=== PATIENT | female | born 2005 | race Caucasian/White ===

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

== ENCOUNTER 2024-04-12 08:25 | Day surgery (SDC) | payer BC ==
[2024-04-09 10:45] VITALS: BMI 24.3
--- NOTE | 2024-04-11 19:46 | HP ---
HISTORY AND PHYSICAL CHIEF COMPLAINT: Chronic tonsillitis. HISTORY OF PRESENT ILLNESS: The patient is a 18-year-old female who was recently seen in my office with complaints of having recurrent episodes of streptococcal tonsillitis despite treatment with various types of oral antibiotics. The patient has an allergy to penicillin. At the time that she was seen in my office, clinical examination of the oropharynx reveals that she had 4+ cryptic tonsils filled with white cheesy debris. It was recommended that she undergo a tonsillectomy under general anesthesia. PAST MEDICAL HISTORY: Reveals she has allergies to penicillin, amoxicillin, etc. Her only current medication is control pills. She has not had any previous surgeries. REVIEW OF SYSTEMS: Completely unremarkable. PHYSICAL EXAMINATION: GENERAL: This patient is a pleasant 18-year-old female who was alert and cooperative. HEENT: The patient is normocephalic. Tympanic membranes are normal. Middle ear space is free of any fluid or infection. Pupils are equal, round, reactive to light and accommodation. Extraocular movements within normal limits. Intranasal examination reveals moderate septal deviation with compensatory hypertrophy of inferior turbinates and a moderate amount of mucus on the mucous membranes and draining down the posterior pharynx. Examination of oropharynx reveals 4+ cryptic tonsils filled with white cheesy debris. Remainder of the head and neck exam is unremarkable. CHEST: Both lung allen are clear. CARDIOVASCULAR: The patient has a regular sinus rhythm. S1, S2 present without any murmurs. ABDOMEN: There is no evidence any masses, megaly or tenderness. The abdomen is soft. SKIN: Unremarkable. MUSCULOSKELETAL: Within normal limits. NEUROLOGIC: Within normal limits. The remainder of the physical exam is essentially unremarkable. IMPRESSION: Chronic tonsillitis. PLAN: The patient is scheduled undergo a tonsillectomy under general anesthesia in a.m. Attention, RNs in the pre-surgical area: I have ordered for the patient to receive 1 g of Rocephin IV to be given once an intravenous line has been established. If the pharmacy department has sent a different type of antibiotic to the pre-surgical area for this patient, please return that medication and cancel the order. Make sure that the patient's account is credited appropriately. Also, if necessary, make the pharmacy department aware that the Rocephin is a 3rd generation cephalosporin and it has been found to be safe to use in patients who have penicillin allergies. I have also ordered for this patient to receive 1000 mg of Ofirmev IV to be given once an intravenous line has been established. This patient will be staying in the hospital until 4:15 p.m. Prior to her discharge, I would like for the patient to have 4 mg of Zofran IV and also 0.5 mg of Dilaudid IV. I would like for the patient to receive both these medications even if she is not having any problems with nausea or with pain. This will ensure that she is comfortable once she arrives at home. If you wish to give the patient her oral pain medication while she is in the postop area, the [place] 7.5/325 mg, then this is okay if it is possible to give her the [place] tablets with a little bit of applesauce or ice cream that would reduce the chances of her becoming nauseated. KRISTINA / MARLON: [id number] /
[~2024-04-12 08:25] MED LIST: MIDAZOLAM 2 MG/2 ML VIAL IV PRN; Pre Op ABX Message 1 EACH MISC MISCELLANE ONE
[2024-04-12] MEDS: IV FLUID CONTINUATION 1,000 ML IV ONE ×2 (08:59→12:08)
[2024-04-12] MEDS: LIDOCAINE 1% (10MG/ML) FOR IV START INTRADERMA STA (09:02)
[2024-04-12] MEDS: LACTATED RINGERS 1,000 ML IV SCH (09:03)
[2024-04-12] MEDS: ACETAMINOPHEN IV (For NPO) 1,000 MG in EMPTY BAG 1 BAG IVPB ONE (09:21)
[2024-04-12] MEDS: ONDANSETRON 4 MG/2 ML VIAL IVP ONE (09:22)
[2024-04-12] MEDS: DEXAMETHASONE SOD PHOSPHATE 4 MG/ML 1 ML VIAL IVP ONE (09:22)
[2024-04-12] MEDS ORDERED: PROPOFOL 10 MG/ML 20 ML VIAL IV ONE (09:58)
[2024-04-12] MEDS ORDERED: fentaNYL (PF) 50 MCG/ML 2 ML AMP ONE (09:58)
[2024-04-12] MEDS ORDERED: SUCCINYLCHOLINE CHLORIDE 200 MG/10 ML VIAL IV ONE (09:58)
[2024-04-12] MEDS ORDERED: MIDAZOLAM 2 MG/2 ML VIAL ONE (09:58)
[2024-04-12] MEDS ORDERED: LIDOCAINE 1% INJ 10MG/ML (20 ML MDV) ONE (09:58)
[2024-04-12] MEDS: BUPIVACAINE (PF) 0.5% 30 ML VIAL SQ ONE ×4 (10:26→10:53)
[2024-04-12] MEDS ORDERED: LACTATED RINGERS 1,000 ML IV SCH (11:00)
[2024-04-12] MEDS: fentaNYL (PF) 50 MCG/ML 2 ML AMP IV PRN (11:39)
[2024-04-12 11:49] VITALS: RESP 16; TEMP 97.8
[2024-04-12] MEDS: HYDROmorphone 0.5 MG/0.5 ML SYRINGE IVP ONE (12:07)
[2024-04-12] MEDS: ONDANSETRON 4 MG/2 ML VIAL IVP SCH (13:39)
[2024-04-12] MEDS: HYDROcodone/APAP 7.5-325MG 1 EACH TAB PO PRN (13:51)
[2024-04-12 14:26] VITALS: BP 128/74; PULSE 77
--- NOTE | 2024-04-16 00:23 | OP ---
OPERATIVE REPORT DATE OF SERVICE : 04/12/2024 PREOPERATIVE DIAGNOSIS: Chronic tonsillitis with tonsillar hypertrophy. POSTOPERATIVE DIAGNOSIS: Chronic tonsillitis with tonsillar hypertrophy. ANESTHESIA: General. OPERATIVE PROCEDURE: Tonsillectomy. COMPLICATIONS: None. ESTIMATED BLOOD LOSS: Less than 50 mL. DESCRIPTION OF PROCEDURE: The patient was placed on the Operating Table in the supine position, after uneventful induction and endotracheal intubation, satisfactory general anesthesia was obtained. Next, the #3 Alvin-Ravindra mouth gag was introduced into the oropharynx, expanded and suspended from a Hawley Stand. Following this, both peritonsillar areas were injected with the tonsillar forceps and pulled medially. The sickle knife was used to make an incision 4 mm lateral to the anterior pillar, beginning at the superior pole and working down to the inferior pole with a similar incision being carried out parallel to the posterior pillar. The angle scissors and the serrated Loreta dissector were used to dissect the tonsil away from the tonsillar fossa. The tonsil itself was excised en toto using the tonsillar snare. Hemostasis was obtained using suction cautery. A sponge was placed in the empty tonsillar fossa. Attention was then directed to the left tonsil where the same procedure was carried out, with the left tonsil being grasped with the tonsillar forceps and pulled medially. The sickle knife was used to make an incision 4 mm lateral to the anterior pillar beginning at the superior pole and working down to the inferior pole with a similar incision being carried out parallel to the posterior pillar. Once again, the angle scissors and the serrated Loreta dissector were used to dissect the tonsil away from the tonsillar fossa and the tonsil itself was excised en toto using the tonsillar snare. Hemostasis was obtained using suction cautery. A sponge was placed in the empty tonsillar fossa. The mouth gag was relaxed for a period of approximately seven minutes and upon re-expanding and removing all sponges, no evidence of any active bleeding was noted. At this point, the procedure was terminated. There were no intraoperative complications. The patient tolerated the procedure well and was returned to the Recovery Room in satisfactory condition. MMODL / IJN: [id number] /
== END 2024-04-12 15:45 | disposition home or self-care (01) ==
LOC: OR 08:25
PROVIDERS: ATTEND Otolaryngology
DX: J35.01 Chronic tonsillitis (principal); J03.90 Acute tonsillitis, unspecified; F17.200 Nicotine dependence, unspecified, uncomplicated; Z88.0 Allergy status to penicillin
CPT/HCPCS: 81025; 42826; J2250; J0330; J1100; J2405; J2003; J3010; J0131; J2704; J1171; J0665; 88304

== ENCOUNTER → 2024-10-29 | Outpatient (CLI) | payer BC ==
--- NOTE | 2024-10-29 09:56 | XR ---
EXAMINATION TYPE: XR chest 2V DATE OF EXAM: 10/29/2024 9:40 AM COMPARISON: 06/30/2005 CLINICAL INDICATION: Female, 19 years old with history of Z11.1 ENCOUNTER FOR SCREENING FOR RESPIRATO RY TUBERCULOSIS, TECHNIQUE: XR chest 2V view(s) obtained. FINDINGS: The heart size is normal. The pulmonary vasculature is normal. The lungs are clear. IMPRESSION: 1. No acute pulmonary process. [facility], , 10/29/2024 9:54 AM
== END | disposition home or self-care (01) ==
LOC: RADXRMAIN 09:25
PROVIDERS: ATTEND Family Medicine
DX: Z11.1 Encounter for screening for respiratory tuberculosis (principal)
CPT/HCPCS: 71046